=== PATIENT | male | born 1955 | race Caucasian/White ===

== ENCOUNTER 2016-07-28 08:27 | Outpatient (CLI) ==
[2016-07-28 13:15] LABS: BASOPHILS # (AUTO) 0.1 K/uL (0-0.2); BASOPHILS % (AUTO) 1.5 % (0.0-3.0); EOSINOPHILS # (AUTO) 0.1 K/ul (0.0-0.7); EOSINOPHILS % (AUTO) 2.7 % (0.0-7.0); HEMATOCRIT 48.9 % (42.0-52.0); IMMATURE GRANULOCYTE % (AUTO) 0.2 % (0.0-5.0); LYMPHOCYTES # (AUTO) 2.1 K/uL (0.60-3.4); LYMPHOCYTES % (AUTO) 39.4 (10.0-50.0); MEAN CORPUSCULAR HEMOGLOBIN 31.6 pg (27.0-31.0); MEAN CORPUSCULAR HGB CONC 34.8 (31.8-35.4); MEAN CORPUSCULAR VOLUME 90.9 fl (80.0-94.0); MONOCYTES # (AUTO) 0.4 K/uL (0.4-2.0); MONOCYTES % (AUTO) 7.4 (0-10); NEUTROPHILS # (AUTO) 2.6 K/ul (2.0-6.9); NEUTROPHILS % (AUTO) 48.8; PLATELET COUNT 258 10^3/uL (140-440); RED BLOOD COUNT 5.38 10^6/ul (4.70-6.10); WHITE BLOOD COUNT 5.28 K/ul (4.2-10.2)
[2016-07-28 13:22] LABS: BILIRUBIN,URINE Negative (NEGATIVE); KETONES,URINE Negative (NEGATIVE); LEUKOCYTE ESTERASE ,URINE Negative (NEGATIVE); NITRITE,URINE Negative (NEGATIVE); PH,URINE 5.5 (5-9); PROTEIN,URINE Negative (NEGATIVE); URINE, BLOOD Trace-intact (NEGATIVE)
[2016-07-28 13:35] LABS: ADD URINE MICROSCOPIC YES
[2016-07-28 13:47] LABS: ALBUMIN 4.2 g/dL (3.4-5.0); ALBUMIN/GLOBULIN RATIO 1.4; ANION GAP 16.3; BILIRUBIN,TOTAL 0.79 mg/dL (0.00-1.20); CALCIUM 9.4 mg/dL (8.2-10.2); CHOL/HDL RATIO 4.3 (4.5-6.4); CREATININE 1.09 mg/dL (0.60-1.10); POTASSIUM 5.3 mmol/L (3.5-5.1); TOTAL PROTEIN 7.2 g/dL (6.4-8.2)
== END 2016-07-28 08:28 | disposition home or self-care (01) ==
LOC: LAB 08:27
PROVIDERS: ATTEND General Practice
DX: E78.5 Hyperlipidemia, unspecified (principal); M54.5 Low back pain; Z12.5 Encounter for screening for malignant neoplasm of prostate; Z79.899 Other long term (current) drug therapy
CPT/HCPCS: 36415; 80053; 80061; 81001; 85025

== ENCOUNTER 2016-08-07 10:22 | Outpatient (CLI) ==
--- NOTE | 2016-08-07 11:18 | DI ---
EXAM: Cervical spine five views HISTORY: Anesthesia of skin COMPARISON: None TECHNIQUE: Five views cervical spine were performed including oblique views. FINDINGS: C7 partially obscured on the lateral view. Vertebral bodies normal height. No fracture visualized. No subluxation. Multilevel marginal osteophyte formation. Mild and mild to moderate mul tilevel intervertebral disc space narrowing. Multilevel facet and uncovertebral hypertrophy. Degen erative changes result and multilevel bilateral neural foraminal narrowing with at least moderate mu ltilevel bilateral neural foraminal narrowing suggested, noting evaluation neural foramen is limited due to patient positioning. Prevertebral soft tissues appear normal. IMPRESSION: Chronic discogenic degenerative disease and facet arthrosis with bilateral neural elder inal narrowing.
== END 2016-08-07 10:23 | disposition home or self-care (01) ==
LOC: RAD 10:22
PROVIDERS: ATTEND General Practice
DX: R20.0 Anesthesia of skin (principal)

== ENCOUNTER 2016-08-25 08:37 | Outpatient (CLI) | END 2016-08-25 08:38 | disposition home or self-care (01) | LOC: LAB 08:37 | PROVIDERS: ATTEND General Practice | DX: E87.5 Hyperkalemia (principal); R73.09 Other abnormal glucose | CPT/HCPCS: 36415; 83036; 83525; 84132 ==

== ENCOUNTER 2016-09-06 09:13 | Outpatient (CLI) | END 2016-09-06 09:14 | disposition home or self-care (01) | LOC: LAB 09:13 | PROVIDERS: ATTEND General Practice | DX: R73.09 Other abnormal glucose (principal) | CPT/HCPCS: 36415; 83525 ==

== ENCOUNTER 2016-09-12 09:26 | Outpatient (CLI) ==
--- NOTE | 2016-09-12 10:32 | US ---
EXAM: Ultrasound bilateral carotid duplex. HISTORY: Memory loss. Dizziness. Hypertension. Visual impairment. Arterial stricture. COMPARISON: None available. TECHNIQUE: Multiple mckeon scale and color Doppler images were obtained. FINDINGS: Please note that estimates of internal carotid artery stenoses are based upon NASCET fatuma cottrell. Right carotid: Mild plaquing noted without 50% or greater stenosis. Peak systolic velocity measure ment in the right internal carotid artery is 0.6 meters per second. Right internal to common caroti d artery peak systolic velocity ratio measures 0.8. End diastolic velocity measurement in the right internal carotid artery is 0.1 meters per second. Flow in the right vertebral artery is antegrade. Left carotid: Mild plaquing noted without 50% or greater stenosis. Peak systolic velocity measurem ent in the left internal carotid artery is 0.7 meters per second. Left internal to common carotid a rtery peak systolic velocity ratio measures 0.7. End diastolic velocity measurement in the left int ernal carotid artery measures 0.2 meters per second. Flow in the left vertebral artery is antegrade . IMPRESSION: 1. No evidence for 50% or greater stenosis in the right or left internal carotid artery. 2. Antegrade flow in both vertebral arteries.
--- NOTE | 2016-09-12 10:37 | US ---
Examination: Carpio-scale and color Doppler ultrasonographic evaluation of the bilateral subclavian a rteries. Comparison: Dopplers performed on the same day. Reason for study: Concern for a subclavian stenosis. FINDINGS: The right subclavian artery has a peak systolic velocity measuring 80 cm/sec. The end di astolic velocity is 0 cm/sec. The left subclavian artery has a peak systolic velocity measuring 80 cm/sec. The end diastolic [place] is 0 cm/sec. Impression: Both subclavian arteries measure 80 cm/sec.
== END 2016-09-12 09:27 | disposition home or self-care (01) ==
LOC: RAD 09:26
PROVIDERS: ATTEND General Practice
DX: I77.1 Stricture of artery (principal); R09.89 Other specified symptoms and signs involving the circulatory and respiratory systems; R20.0 Anesthesia of skin
CPT/HCPCS: 93882

== ENCOUNTER 2016-10-09 15:29 | Outpatient (CLI) ==
[2016-10-09 15:55] LABS: CALCIUM 9.4 mg/dL (8.2-10.2); POTASSIUM 3.6 mmol/L (3.5-5.1)
--- NOTE | 2016-10-09 16:20 | DI ---
EXAM: Five views of the lumbar spine. History: Lower back pain. Findings: No acute fracture or subluxation. Posterior fusion hardware from L3-L5 is grossly intact. Mild chronic appearing wedge deformities at T11 and T12. Prominent anterior osteophytes at T12-L1 , L1-L2 and L2-L3. Mild to moderate disc space narrowing at the unfused levels. Impression: No acute osseous abnormality. Grossly intact hardware. Degenerative changes.
== END 2016-10-09 15:30 | disposition home or self-care (01) ==
LOC: LAB 15:29
PROVIDERS: ATTEND General Practice
DX: M54.5 Low back pain (principal)
CPT/HCPCS: 36415; 82310; 83735; 84132

== ENCOUNTER 2016-11-27 10:47 | Outpatient (CLI) ==
[2016-11-27 13:09] LABS: BASOPHILS # (AUTO) 0.1 K/uL (0-0.2); BASOPHILS % (AUTO) 1.7 % (0.0-3.0); EOSINOPHILS # (AUTO) 0.1 K/ul (0.0-0.7); EOSINOPHILS % (AUTO) 3.3 % (0.0-7.0); HEMATOCRIT 44.3 % (42.0-52.0); HEMOGLOBIN 15.9 g/dl (14.0-18.0); IMMATURE GRANULOCYTE % (AUTO) 0.5 % (0.0-5.0); LYMPHOCYTES # (AUTO) 1.7 K/uL (0.60-3.4); LYMPHOCYTES % (AUTO) 40.8 (10.0-50.0); MEAN CORPUSCULAR HEMOGLOBIN 32.1 pg (27.0-31.0); MEAN CORPUSCULAR HGB CONC 35.9 (31.8-35.4); MEAN CORPUSCULAR VOLUME 89.3 fl (80.0-94.0); MONOCYTES # (AUTO) 0.4 K/uL (0.4-2.0); MONOCYTES % (AUTO) 8.4 (0-10); NEUTROPHILS # (AUTO) 1.9 K/ul (2.0-6.9); NEUTROPHILS % (AUTO) 45.3; PLATELET COUNT 243 10^3/uL (140-440); RED BLOOD COUNT 4.96 10^6/ul (4.70-6.10); WHITE BLOOD COUNT 4.19 K/ul (4.2-10.2)
[2016-11-27 13:34] LABS: ALBUMIN/GLOBULIN RATIO 1.48; ANION GAP 14.5; BILIRUBIN,TOTAL 0.82 mg/dL (0.00-1.20); BILIRUBIN,URINE Negative (NEGATIVE); BUN/CREATININE RATIO 11.11; CALCIUM 9.2 mg/dL (8.2-10.2); CHOL/HDL RATIO 4.2 (4.5-6.4); CREATININE 1.08 mg/dL (0.60-1.10); KETONES,URINE Negative (NEGATIVE); LEUKOCYTE ESTERASE ,URINE Negative (NEGATIVE); NITRITE,URINE Negative (NEGATIVE); PH,URINE 5.5 (5-9); POTASSIUM 3.5 mmol/L (3.5-5.1); PROTEIN,URINE Negative (NEGATIVE); TOTAL PROTEIN 6.7 g/dL (6.4-8.2); URINE, BLOOD Negative (NEGATIVE)
[2016-11-27 13:38] LABS: ADD URINE MICROSCOPIC NO
== END 2016-11-27 10:48 | disposition home or self-care (01) ==
LOC: LAB 10:47
PROVIDERS: ATTEND General Practice
DX: E78.5 Hyperlipidemia, unspecified (principal); E87.5 Hyperkalemia; R73.09 Other abnormal glucose; Z79.899 Other long term (current) drug therapy
CPT/HCPCS: 36415; 80053; 80061; 81001; 85025

== ENCOUNTER 2017-02-27 12:31 | Outpatient (CLI) ==
[2017-02-27 12:40] LABS: BASOPHILS # (AUTO) 0.1 K/uL (0-0.2); BASOPHILS % (AUTO) 2.3 % (0.0-3.0); EOSINOPHILS # (AUTO) 0.1 K/ul (0.0-0.7); EOSINOPHILS % (AUTO) 3.3 % (0.0-7.0); HEMATOCRIT 46.4 % (42.0-52.0); HEMOGLOBIN 16.4 g/dl (14.0-18.0); IMMATURE GRANULOCYTE % (AUTO) 0.2 % (0.0-5.0); LYMPHOCYTES # (AUTO) 1.7 K/uL (0.60-3.4); LYMPHOCYTES % (AUTO) 39.3 (10.0-50.0); MEAN CORPUSCULAR HEMOGLOBIN 32.3 pg (27.0-31.0); MEAN CORPUSCULAR HGB CONC 35.3 (31.8-35.4); MEAN CORPUSCULAR VOLUME 91.3 fl (80.0-94.0); MONOCYTES # (AUTO) 0.4 K/uL (0.4-2.0); MONOCYTES % (AUTO) 9.1 (0-10); NEUTROPHILS % (AUTO) 45.8; PLATELET COUNT 260 10^3/uL (140-440); RED BLOOD COUNT 5.08 10^6/ul (4.70-6.10)
[2017-02-27 12:45] LABS: BILIRUBIN,URINE Negative (NEGATIVE); KETONES,URINE Negative (NEGATIVE); LEUKOCYTE ESTERASE ,URINE Negative (NEGATIVE); NITRITE,URINE Negative (NEGATIVE); PH,URINE 5.5 (5-9); PROTEIN,URINE Negative (NEGATIVE); URINE, BLOOD Negative (NEGATIVE)
[2017-02-27 12:46] LABS: ADD URINE MICROSCOPIC NO
[2017-02-27 13:09] LABS: ALBUMIN 4.2 g/dL (3.4-5.0); CALCIUM 9.9 mg/dL (8.2-10.2); POTASSIUM 3.7 mmol/L (3.5-5.1); TOTAL PROTEIN 7.5 g/dL (6.4-8.2)
[2017-02-27 13:10] LABS: ALBUMIN/GLOBULIN RATIO 1.27; ANION GAP 12.7; BILIRUBIN,TOTAL 0.83 mg/dL (0.00-1.20); BUN/CREATININE RATIO 12.5; CHOL/HDL RATIO 4.1 (4.5-6.4); CREATININE 1.12 mg/dL (0.60-1.10)
== END 2017-02-27 12:32 | disposition home or self-care (01) ==
LOC: LAB 12:31
PROVIDERS: ATTEND General Practice
DX: E78.5 Hyperlipidemia, unspecified (principal); I10 Essential (primary) hypertension; M54.5 Low back pain; Z68.34 Body mass index [BMI] 34.0-34.9, adult; Z79.899 Other long term (current) drug therapy
CPT/HCPCS: 36415; 80053; 80061; 81001; 85025

== ENCOUNTER 2017-09-10 11:34 | Outpatient (CLI) | END 2017-09-10 11:35 | disposition home or self-care (01) | LOC: FCC-LAB 11:34 | PROVIDERS: ATTEND General Practice | DX: E78.5 Hyperlipidemia, unspecified (principal); Z79.899 Other long term (current) drug therapy | CPT/HCPCS: 36415; 80053; 80061; 81001; 85025 ==

== ENCOUNTER 2017-09-13 10:32 | Outpatient (CLI) ==
--- NOTE | 2017-09-13 12:18 | CT ---
EXAM: CT of the abdomen pelvis without contrast History: Left lower quadrant abdominal pain. Comparison: CT abdomen pelvis 04/22/2014 Technique: Multiplanar CT images through the abdomen pelvis were obtained without the administration of IV contrast Findings: Lung bases are clear. No acute osseous abnormalities. Postsurgical changes of the lumbar spine. Cholelithiasis. Calcified granulomas within the spleen. No focal liver lesions. No peripancreatic inflammation. Adrenal glands are unremarkable. 3 mm calculus within the left kidney. No ureteral c alculi. No hydronephrosis. Small fat-containing umbilical hernia. No bowel obstruction. The appen selma is normal. Colonic diverticulosis. No bladder wall thickening. Prominent prostate. No perirec anastasiia inflammation. Partially visualized bilateral scrotal hydroceles. No free air and no ascites. N o lymphadenopathy. Small fat-containing left inguinal hernia. Impression: 1. No acute intra-abdominal or pelvic process. 2. Colonic diverticulosis. 3. Cholelithiasis. 4. Nonobstructing left nephrolithiasis. 5. Partially visualized bilateral scrotal hydroceles.
== END 2017-09-13 10:33 | disposition home or self-care (01) ==
LOC: RAD 10:32
PROVIDERS: ATTEND General Practice
DX: R10.32 Left lower quadrant pain (principal); Z12.5 Encounter for screening for malignant neoplasm of prostate
CPT/HCPCS: 36415; 82272

== ENCOUNTER 2018-01-11 14:14 | Outpatient (CLI) | END 2018-01-11 14:15 | disposition home or self-care (01) | LOC: FCC-LAB 14:14 | PROVIDERS: ATTEND General Practice | DX: E78.5 Hyperlipidemia, unspecified (principal); I10 Essential (primary) hypertension; G47.00 Insomnia, unspecified; Z79.899 Other long term (current) drug therapy | CPT/HCPCS: 36415; 80053; 80061; 81001; 85025 ==

== ENCOUNTER 2018-02-28 16:05 | Outpatient (CLI) ==
--- NOTE | 2018-03-01 08:09 | DI ---
EXAM: Chest two view, frontal and lateral views. HISTORY: Low back pain. Chest pain. COMPARISON: 11/22/2015. FINDINGS: The heart size is normal. There is no pulmonary vascular congestion. The lungs are clear . No pleural effusion or pneumothorax is seen. No acute osseous abnormality identified. Since the prior study, there has been no significant interval change. IMPRESSION: No acute cardiopulmonary process.
== END 2018-02-28 16:06 | disposition home or self-care (01) ==
LOC: CAR 16:05
PROVIDERS: ATTEND General Practice
DX: M54.5 Low back pain (principal); R10.10 Upper abdominal pain, unspecified; N40.0 Benign prostatic hyperplasia without lower urinary tract symptoms; R07.9 Chest pain, unspecified
CPT/HCPCS: 36415; 80053; 81001; 82248; 82550; 82553; 84484; 85025; 85379; 85651; 93005; 93010

== ENCOUNTER 2018-03-05 12:23 | Outpatient (CLI) | END 2018-03-05 12:24 | disposition home or self-care (01) | LOC: LAB 12:23 | PROVIDERS: ATTEND General Practice | DX: K21.9 Gastro-esophageal reflux disease without esophagitis (principal) | CPT/HCPCS: 36415; 84550 ==

== ENCOUNTER 2018-07-03 07:55 | Outpatient (CLI) | END 2018-07-03 07:56 | disposition home or self-care (01) | LOC: RHC-LAB 07:55 | PROVIDERS: ATTEND General Practice | DX: E78.5 Hyperlipidemia, unspecified (principal); I10 Essential (primary) hypertension; G47.00 Insomnia, unspecified; Z79.899 Other long term (current) drug therapy; M10.9 Gout, unspecified | CPT/HCPCS: 36415; 80053; 80061; 81001; 85025 ==

== ENCOUNTER 2018-07-17 15:36 | Outpatient (CLI) | END 2018-07-17 15:37 | disposition home or self-care (01) | LOC: RHC-LAB 15:36 | PROVIDERS: ATTEND General Practice | DX: R51 Headache (principal); R42 Dizziness and giddiness; R11.2 Nausea with vomiting, unspecified; R19.7 Diarrhea, unspecified | CPT/HCPCS: 87502; 87651 ==

== ENCOUNTER 2018-10-31 12:17 | Outpatient (CLI) ==
--- NOTE | 2018-10-31 13:20 | US ---
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 In this area, there is a superficially located ovoid well marginated echogenic mass measuring 1.2 x 0.5 x 1.6 cm with no internal vascularity and echogenicity similar to adjacent fat. IMPRESSION: Echogenic mass left mid thigh measures 1.6 cm, most consistent with lipoma, minimally in creased in size from 2016.
== END 2018-10-31 12:18 | disposition home or self-care (01) ==
LOC: RAD 12:17
PROVIDERS: ATTEND General Practice
DX: D17.79 Benign lipomatous neoplasm of other sites (principal)
CPT/HCPCS: 76882